=== PATIENT | male | born 1960 | race African-American/Black ===

== ENCOUNTER 2018-04-26 04:57 | Inpatient (IN) ==
[2018-04-26] MEDS ORDERED: Morphine Inj 4 MG/ML Vial IV.PUSH ONE (05:12)
[2018-04-26] MEDS ORDERED: Sod Chloride 0.9% Inj 1,000 ML IV.SIG ONE (05:12)
--- NOTE | 2018-04-26 05:12 | ED ---
HPI General Chief Complaint: Abdominal Pain Stated Complaint: ABD Pain Time Seen by Provider: 04/26/18 05:09 Source: patient Mode of arrival: ambulatory Limitations: no limitations History of Present Illness HPI narrative: 58-year-old male patient presents to the ER today because he is having right upper quadrant abdominal pains with radiation throughout the abdomen starting yesterday. He states the pain is currently a 10 out of 10, nauseous, vomiting, and he states that he thinks is because of food poisoning from chicken he ate in [place]. He denies any fevers, does not know of any sick contacts, denies diarrhea or any other symptoms. Modifying Factors: None Associated Signs & Symptoms: Right upper quadrant abdominal pain, nausea, vomiting Risk Factors: None Related Data Home Medications Medication Instructions Recorded Confirmed No Known Home Medications 04/26/18 04/26/18 Allergies Allergy/AdvReac Type Severity Reaction Status Date / Time aspirin Allergy Rash Verified 04/26/18 05:11 ibuprofen [From Motrin] Allergy Rash Verified 04/26/18 05:11 Review of Systems ROS: all other systems reviewed are negative FOR[facility] Medical History Medical History Diabetes mellitus (Acute) Surgical History Surgical History History of repair of ACL (Acute) Social History Social History Substance History: No History of Abuse Smoking Status: Never smoker How Often Do You Have a Drink Containing Alcohol: Monthly or less Recent Travel in [facility] within the Last 8 Weeks: No Recent Out of Country Travel within the Last 8 Weeks: No Immunization History Tetanus Immunization: <5 Years Exam Narrative Exam Narrative: GENERAL: Well-developed elderly male patient currently in moderate distress. Awake and oriented x3. SKIN: Focused skin assessment warm/dry. HEAD: Atraumatic. Normocephalic. EYES: Pupils equal and round. No scleral icterus. No injection or drainage. ENT: No nasal bleeding or discharge. Mucous membranes pink and moist. NECK: Trachea midline. No JVD. CARDIOVASCULAR: Regular rate and rhythm. No murmur appreciated. RESPIRATORY: No accessory muscle use. Clear to auscultation. Breath sounds equal bilaterally. GASTROINTESTINAL: Abdomen soft, mild right upper quadrant tenderness and upper abdominal tenderness without guarding or rebound, moderately distended. Hepatic and splenic margins not palpable. MUSCULOSKELETAL: No obvious deformities. No clubbing. No cyanosis. No edema. NEUROLOGICAL: Awake and alert. No obvious cranial nerve deficits. Motor grossly within normal limits. Normal speech. PSYCHIATRIC: Appropriate mood and affect; insight and judgment normal. Course Initial Documented Vital Signs Temperature 98.9 F 04/26/18 05:03 Pulse Rate 58 L 04/26/18 05:03 Respiratory Rate 18 04/26/18 05:03 Blood Pressure 174/93 H 04/26/18 05:03 Pulse Oximetry 95 04/26/18 05:03 Last Documented Vital Signs Temperature 98.9 F 04/26/18 05:03 Pulse Rate 72 04/26/18 06:28 Respiratory Rate 18 04/26/18 06:28 Blood Pressure 160/80 H 04/26/18 06:28 Pulse Oximetry 96 04/26/18 06:28 Sign Out Sign Out Data: Patient Sign Out occurred on 04/26/18 at 06:58. Patient's care was discussed, and care was transferred from Tracy Enrique MD to Heath Vang MD. Sign Out Comment: CAT scan showing a possible gallbladder thickening, recommended ultrasound by radiology. Case signed out to Dr. Vang at 7 AM awaiting right upper quadrant ultrasound for further disposition. Last updated by Tracy Enrique MD at 04/26/18 06:56 Post-Handoff Eval: She was signed out to me at change of shift by the nighttime doctor. We are waiting ultrasound of the gallbladder. Patient presents with complaints of right upper quadrant pain starting last night after eating. Patient has CT scan that showed questionable gallbladder thickening in the inferior wall. Ultrasound shows gallstones with thickening of the gallbladder. Case was discussed with Dr. Dickson, general surgery, who has come to see the patient and will take him for surgery to remove the gallbladder. Patient's creatinine was 1.45. He is been given 1 L normal saline bolus x1. Medical Decision Making MDM Narrative Medical Screen Exam Complete: Yes Emergency Medical Condition: Yes Differential Diagnosis Differential Diagnosis: Gastroenteritis versus food poisoning versus versus pancreatitis versus other acute intra-abdominal processes Lab Data Result diagrams: 04/26/18 05:20 04/26/18 05:20 Lab Results 04/26/18 04/26/18 04/26/18 Range/Units 05:18 05:20 05:20 WBC 12.1 H (4.0-11.0) th/mm3 RBC 4.66 (4.50-5.90) mil/mm3 Hgb 15.2 (13.0-17.0) gm/dL Hct 43.7 (39.0-51.0) % MCV 93.7 (80.0-100.0) fL MCH 32.7 (27.0-34.0) pg MCHC 34.9 (32.0-36.0) % RDW 14.2 (11.6-17.2) % Plt Count 206 (150-450) th/mm3 MPV 8.3 (7.0-11.0) fL Neut % (Auto) 89.0 H (16.0-70.0) % Lymph % (Auto) 6.0 L (9.0-44.0) % [place] % (Auto) 4.6 (0.0-8.0) % Eos % (Auto) 0.0 (0.0-4.0) % Baso % (Auto) 0.4 (0.0-2.0) % Neut # (Auto) 10.8 H (1.8-7.7) th/mm3 Lymph # (Auto) 0.7 L (1.0-4.8) th/mm3 [place] # (Auto) 0.6 (0.0-0.9) th/mm3 Eos # (Auto) 0.0 (0.0-0.4) th/mm3 Baso # (Auto) 0.1 (0.0-0.2) th/mm3 WBC Differential . Differential Comment Auto diff final Sodium 139 (136-145) meq/L Potassium 4.4 (3.5-5.1) meq/L Chloride 107 (98-107) meq/L Carbon Dioxide 23.7 (21.0-32.0) meq/L Anion Gap 8 (5-15) meq/L BUN 18 (7-18) mg/dL Creatinine 1.46 H (0.60-1.30) mg/dL Estimated GFR 49 L (>89) mL/min Random Glucose 267 H (74-106) mg/dL Calcium 9.3 (8.5-10.1) mg/dL Magnesium 2.0 (1.5-2.5) mg/dL Total Bilirubin 0.4 (0.2-1.0) mg/dL AST 20 (15-37) U/L ALT 40 (12-78) U/L Alkaline Phosphatase 92 (45-117) U/L Total Protein 7.9 (6.4-8.2) g/dL Albumin 3.9 (3.4-5.0) g/dL Lipase 109 (73-393) U/L Urine Color Yellow (Yellw/Straw) Urine Clarity Clear (Clear) Urine pH 5.0 (5.0-8.5) Ur Specific [place] 1.021 (1.002-1.035) Urine Protein Negative (Neg-Trace) mg/dL Urine Glucose (UA) 500 or greater (Negative) mg/dL Urine Ketones 20 (Negative) mg/dL Urine Occult Blood Negative (Negative) Urine Nitrate Negative (Negative) Urine Bilirubin Negative (Negative) Urine Urobilinogen Less than 2 (Less than 2) mg/dL Ur Leukocyte Esterase Negative (Negative) Urine RBC Less than 1 (0-3) /hpf Urine Mucus Few H (Occasional) /lpf Micro UA Comment Culture not ind Ur Microscopic Review Not Reportable Urine Culture Comments Culture not ind Imaging Data Radiologist's impression: Abdomen/Pelvis CT 04/26/18 05:12 CONCLUSION: 1. Fatty liver. Distended gallbladder. No radiopaque gallstones or definite gallbladder wall thickening is identified however on some of the reformatted images some of the fat around the gallbladder is higher density possible inflammation. On the sagittal reformats (series 602 image 71) there is a lucency in the gallbladder lumen could be gas-filled noncalcified gallstone. There is also some questionable inflammation around the neck of the gallbladder (series 2 image 32 series 602 image 71) Gallbladder ultrasound would be helpful to confirm acute cholecystitis. Gallbladder Ultrasound 04/26/18 06:44 CONCLUSION: 1. Gallstones with minimal pericholecystic fluid. Common duct is not visualized. Discharge Plan Discharge Disposition Patient Disposition: ED Admit(ED Internal Use Only) Discharge Details Diagnosis: Acute cholecystitis, Renal insufficiency Physicians Team ED Provider: Heath Vang Primary Care Provider: UNKNOWN, Rxs /Orders / Referrals /Forms Prescriptions: No Action No Known Home Medications RF: 0 Discharge Instructions Patient Printed Instructions: Laparoscopic Cholecystectomy (DC) Discharge Interventions Interventions: Vital Signs Last Done: 04/26/18 06:28 Status ED Status: With Doctor
[2018-04-26 05:30] LABS: Baso # (Auto) 0.1 th/mm3 (0.0-0.2); Baso % (Auto) 0.4 % (0.0-2.0); Hematocrit 43.7 % (39.0-51.0); Hemoglobin 15.2 gm/dL (13.0-17.0); Lymph # (Auto) 0.7 th/mm3 (1.0-4.8); Mean Corpuscular HGB Conc 34.9 % (32.0-36.0); Mean Corpuscular Hemoglobin 32.7 pg (27.0-34.0); Mean Corpuscular Volume 93.7 fL (80.0-100.0); Mean Platelet Volume 8.3 fL (7.0-11.0); Mono # (Auto) 0.6 th/mm3 (0.0-0.9); Mono % (Auto) 4.6 % (0.0-8.0); Neut # (Auto) 10.8 th/mm3 (1.8-7.7); Platelet Count 206 th/mm3 (150-450); Red Blood Count 4.66 mil/mm3 (4.50-5.90); Red Cell Distribution Width 14.2 % (11.6-17.2); White Blood Count 12.1 th/mm3 (4.0-11.0)
[2018-04-26 05:47] LABS: Bilirubin,Urine Negative (Negative); Clarity,Urine Clear (Clear); Color,Urine Yellow (Yellw/Straw); Glucose,Urine (UA) 500 or Greater mg/dL (Negative); Leukocyte Esterase,Urine Negative (Negative); Mucus,Urine Few /lpf (Occasional); Nitrite,Urine Negative (Negative); Specific Gravity,Urine 1.021 (1.002-1.035)
[2018-04-26 05:57] LABS: Albumin 3.9 g/dL (3.4-5.0); Anion Gap 8 meq/L (5-15); Aspartate Aminotransferase 20 U/L (15-37); Blood Urea Nitrogen 18 mg/dL (7-18); Calcium 9.3 mg/dL (8.5-10.1); Carbon Dioxide 23.7 meq/L (21.0-32.0); Chloride 107 meq/L (98-107); Glomerular Filtration Rate 49 mL/min (>89); Glucose,Random 267 mg/dL (74-106); Lipase 109 U/L (73-393); Potassium 4.4 meq/L (3.5-5.1); Sodium 139 meq/L (136-145)
[2018-04-26 05:58] LABS: Alanine Aminotransferase 40 U/L (12-78)
[2018-04-26 06:00] LABS: Alkaline Phosphatase 92 U/L (45-117); Total Protein 7.9 g/dL (6.4-8.2)
--- NOTE | 2018-04-26 06:36 | CT ---
EXAM DATE: 04/26/2018 6:25 AM EST AGE/SEX: 58 years / Male INDICATIONS: Right upper quadrant pain. Nausea, and vomiting. CLINICAL DATA: This is the patient's initial encounter. Patient reports that signs and symptoms have been present for 1 day and indicates a pain score of 10/10. MEDICAL/SURGICAL HISTORY: Diabetes. None. ORAL CONTRAST: No oral contrast ingested. RADIATION DOSE: 9.96 CTDI (mGy) COMPARISON: No prior exams available for comparison. TECHNIQUE: Multiple contiguous axial images were obtained through the abdomen and pelvis following b olus infusion of 60 ml Omnipaque 350 (iohexol) nonionic water-soluble contrast as a single exam dos e. No oral contrast ingested. Using automated exposure control and adjustment of the mA and/or kV ac cording to patient size, radiation dose was kept as low as reasonably achievable to obtain optimal di agnostic quality images. DICOM format image data is available electronically for review and comparis on. FINDINGS: Lower Lungs: The visualized lower lungs are clear. Liver: The liver has a homogeneously lower density without space-occupying lesion. There is no dilati on of the biliary tree. Gallbladder is well distended. Spleen: Homogeneous density without enlargement. Pancreas: Unremarkable without mass or calcification. Kidneys: Normal in size and shape. No evidence of mass or hydronephrosis. Adrenal Glands: Unremarkable. Aorta: The aorta and proximal iliac vessels are grossly unremarkable without aneurysmal dilation. Bowel/Mesentery: The bowel loops are grossly unremarkable. The cecum and sigmoid colon have a normal configuration. Scattered sigmoid diverticulosis Abdominal Wall: Intact. Retroperitoneum: No evidence of adenopathy in the retrocrural, para-aortic, or deep pelvic regions. Bladder: Contours are smooth. Reproductive Organs: No abnormal masses or calcifications seen. Inguinal: The inguinal region is unremarkable without evidence of adenopathy. Bony Structures: Unremarkable. CONCLUSION: 1. Fatty liver. Distended gallbladder. No radiopaque gallstones or definite gallbladder wall thicken ing is identified however on some of the reformatted images some of the fat around the gallbladder is higher density possible inflammation. On the sagittal reformats (series 602 image 71) there is a kierra ency in the gallbladder lumen could be gas-filled noncalcified gallstone. There is also some question able inflammation around the neck of the gallbladder (series 2 image 32 series 602 image 71) Gallblad angel ultrasound would be helpful to confirm acute cholecystitis. Electronically signed by: Stefan Spence MD Board Certified Radiologist 04/26/2018 6:35 AM EST
--- NOTE | 2018-04-26 09:27 | US ---
EXAM DATE: 04/26/2018 8:40 AM EST AGE/SEX: 58 years / Male INDICATIONS: Right upper quadrant pain. CLINICAL DATA: This is the patient's initial encounter. Patient reports that signs and symptoms have been present for 1 day and indicates a pain score of 10/10. MEDICAL/SURGICAL HISTORY: . Diabetic. . ACL repair. COMPARISON: [facility], CT ABDOMEN & PELVIS W CONTRAST, 04/26/2018. . MEASUREMENTS: Liver:__ 18.8 cm. Common Bile Duct:__ Nonvisualized. FINDINGS: Liver: Increased echogenicity without focal lesion or ductal dilatation. Portal Vein: Hepatopedal flow seen in portal vein. Common Duct: Is not visualized Gallbladder: There are stones within the gallbladder with minimal pericholecystic fluid. Pancreas: Not well visualized. Right Kidney: Normal echogenicity and cortical thickness. No mass or hydronephrosis. CONCLUSION: 1. Gallstones with minimal pericholecystic fluid. Common duct is not visualized. Electronically signed by: David Montilla MD Board Certified Radiologist 04/26/2018 9:26 AM EST
[2018-04-26] MEDS ORDERED: Sod Chloride 0.9% Inj 1,000 ML IV.SIG SCH (10:00)
[2018-04-26] MEDS: Bupivacaine/Epinephrine Inj 0.25% 50 ML Vial ONE ×2 (11:49→16:54)
[2018-04-26] MEDS ORDERED: Metoprolol Tartrate 25 MG Tablet PO ONE (12:30)
[2018-04-26] MEDS ORDERED: Sodium Chlor 0.9% Inj 500 ML IV.CONT ONE (12:30)
[2018-04-26] MEDS ORDERED: Chlorhexidine Gluconate 2% 1 Pack (2 Cloths) TOPICAL ONE (12:30)
[2018-04-26] MEDS ORDERED: Promethazine 25 MG Supp RECTAL PRN (14:24)
[2018-04-26] MEDS ORDERED: Bisacodyl 10 MG Supp RECTAL PRN (14:24)
[2018-04-26] MEDS ORDERED: Post-op Orders (for Pharmacy) OTHER ONE (14:24)
--- NOTE | 2018-04-26 14:27 | P.OP ---
- Preoperative Diagnosis (1) Acute cholecystitis - Postoperative Diagnosis (1) Acute cholecystitis Procedure: lap josue Anesthesia: GETA Surgeon: Onur Dickson MD Estimated blood loss (mL): 5 Pathology: other (gallbladder) Operation and Findings: distended gallbladder with large stones, necrotic
[2018-04-26] MEDS ORDERED: ceFAZolin 1 GM Premix Inj 2 GM/100 ML PIGGYBACK IV.SIG ONE (14:37)
[2018-04-26] MEDS ORDERED: ceFAZolin Inj 1,000 MG in Sodium Chlor 0.9% Inj 100 ML IV.SIG SCH (15:00)
[2018-04-26] MEDS ORDERED: fentaNYL Citrate Inj 100 MCG/2 ML Ampul ONE (17:14)
[2018-04-26] MEDS ORDERED: *morphine SULFATE 4 MG/ML PERIprocedure ONLY ONE ×2 (17:21→17:58)
[2018-04-26] MEDS: Sod Chloride 0.9% Inj 1,000 ML IV.CONT SCH (17:25)
[2018-04-26] MEDS: Piperacil/Tazo 2.25 GM Premix 2.25 GM/50 ML PIGGYBACK IV.SIG SCH (18:13)
--- NOTE | 2018-04-26 18:55 | MP ---
cc: Onur Dickson MD DATE OF OPERATION: 04/26/2018 PREOPERATIVE DIAGNOSES: Acute cholecystitis with cholelithiasis. Umbilical hernia. POSTOPERATIVE DIAGNOSES: Acute cholecystitis with cholelithiasis, gangrenous gallbladder. Umbilical hernia. SURGEON: Onur Dickson MD PROCEDURES PERFORMED: Laparoscopic cholecystectomy. Open umbilical hernia repair, primary. ANESTHESIA: GETA. IV FLUIDS: See anesthesia sheet. ESTIMATED BLOOD LOSS: 30 mL DRAINS: A 10-[place] LOUANN drain. COMPLICATIONS: None. INDICATION: The patient is a 58-year-old male who presents with acute onset of right lower quadrant abdominal pain. The patient had further workup including CT scan and ultrasound showing acutely inflamed, distended gallbladder with gallstones. The patient also had CT scan findings of umbilical hernia. SPECIMENS: Gallbladder. FINDINGS: Acutely distended tense inflamed gallbladder with multiple gallstones. Necrotic gallbladder. DETAILS OF PROCEDURE: The patient was taken to the operating suite, placed in supine position. He was prepped and draped in usual sterile fashion after induction of general endotracheal anesthesia. Brief timeout stating correct patient, procedure, and surgical site. We were all in agreement with this. Attention first directed to the superior umbilicus where local injected. Small stab joselyn incision made. The Visiport Optiview 5 mm was extended into the abdomen safely. Abdomen insufflated to 15 mm of pneumoperitoneum. On cursory inspection, no evidence of injury. Several other ports were placed, including an epigastric 12 mm port followed by 2 right subcostal ports, 5 mm. The patient was placed in reverse Trendelenburg, airplaning to the left. The gallbladder noted to be very tense, dilated, and somewhat necrotic wall. Endoneedle used to obtain 160 mL of bilious material. The gallbladder was desufflated in order to be able to grasp it and advance the gallbladder. There were multiple adhesions of omentum attached to the gallbladder. These were taken down with electro Bovie cautery. Suction, blunt dissection, and electrocautery were used to remove adhesions off the gallbladder that were intermittently adhered to this. Gallbladder was dissected out. Two small clips were placed proximal and 1 distal on the cystic duct structure. This was clipped with EndoShears. The cystic artery was also ligated with clips. The gallbladder was attempted to be removed from the gallbladder fossa. There was a significant amount of fatty tissue on the gallbladder and acute inflammation. The decision was made to proceed with a dome-down approach. Gallbladder was removed from the gallbladder fossa. Gallbladder noted to have several attachments to the gallbladder fossa. Endoloop used to ligate this and transect the gallbladder and place in EndoCatch bag and remove from the abdomen. Multiple stones were also noted within the gallbladder, were also removed. Suction irrigation was done until the effluent was clear. Surgicel powder was used for assistance in hemostatic agent in the gallbladder fossa. A 10 flat LOUANN drain was also placed at the right upper quadrant and secured with 2-0 nylon. No evidence of biliary leaking, and hemostasis was obtained. Pneumoperitoneum was removed, and the ports were removed. Attention was directed to the umbilicus where a curvilinear incision was made with a scalpel. Further dissection with Bovie electrocautery down to the fascia. Hemostat used to further dissect the hernia sac from the umbilicus. The sac was removed, and hemostasis was obtained. The hernia was closed with #1 [id number] Prolene and 4-0 Monocryl, and 0 Vicryl was used to attach the umbilicus to the fascia. Local anesthetic injected. The epigastric 12 mm port was closed with 0 Vicryl [id number]; 4-0 Monocryl was done in all subcuticular incisions. The patient tolerated the procedure well. There were no intraoperative complications. All lap and needle counts were correct at the end of the procedure. The patient was extubated and taken stable to the PACU. MD VERA Claire/carrie , 06:27 PM , 06:38 PM
[2018-04-26] MEDS: Morphine Inj 4 MG/ML Vial IV.PUSH PRN (20:44)
--- NOTE | 2018-04-26 22:13 | MH ---
cc: Onur Dickson MD DATE OF ADMISSION: 04/26/2018 CHIEF COMPLAINT: Abdominal pain, acute cholecystitis. HISTORY OF PRESENT ILLNESS: The patient is a 58-year-old male who presents with acute onset of right upper quadrant abdominal pain. The patient states the pain started yesterday and continued to get worse in severity. He states that his pain was initially a 4/10 and currently a 10/10. He had associated nausea and vomiting. He states the pain was sharp, no radiation, worse with movement, better with lying still. He denied any fevers. He came to the emergency department for further evaluation including a CT scan and ultrasound showing gallstones with a thickened gallbladder wall and pericholecystic fluid and acute cholecystitis. Therefore, a surgical evaluation was done. PAST MEDICAL HISTORY: Diabetes. PAST SURGICAL HISTORY: ACL repair. SOCIAL HISTORY: Denies smoking. Occasional ETOH. Denies IVDA. ALLERGIES: ASPIRIN AND IBUPROFEN. MEDICATIONS: See EMR. FAMILY HISTORY: Denies cancers or hypertension. REVIEW OF SYSTEMS: GENERAL: Denies fevers or chills. HEENT: Denies eye pain or ear pain. NECK: Denies swelling or pain. LUNGS: Denies cough or wheeze. HEART: Denies palpitations or chest pain. ABDOMEN: Complains of nausea, vomiting and abdominal pain. GENITOURINARY: Denies dysuria or hematuria. ENDOCRINE: Denies polyuria or polydipsia. INTEGUMENTARY: Denies any masses or lesions. NEUROLOGIC: Denies any numbness or tingling. PHYSICAL EXAMINATION: GENERAL: The patient is in no acute distress. VITAL SIGNS: Temperature 98.9, pulse 58, respirations 18, blood pressure 174/93, saturation 95%. HEENT: Pupils equal, round and reactive. NECK: Supple. Trachea midline. LUNGS: Clear to auscultation. Bilateral expansion. HEART: S1, S2. Regular. ABDOMEN: Soft, positive tenderness to palpation in the right upper quadrant, minimal localized rebound. EXTREMITIES: Warm and well perfused. NEUROLOGIC: GCS of 15, 5/5 motor in all extremities. INTEGUMENT: No obvious masses or lesions. PSYCHIATRIC: Appropriate mood, appropriate behavior. LABORATORY AND DIAGNOSTIC DATA: WBC 12.1, hemoglobin 15.2, hematocrit 43.7, platelets 206. Sodium 139, potassium 4.4, chloride 107, BUN 18, creatinine 1.4, glucose 267, AST 20, ALT 40, alkaline phosphatase 92, albumin 3.9, lipase 109. CT reviewed by myself showing a small umbilical hernia and a thickened gallbladder wall and multiple gallstones. Gallbladder ultrasound, pericholecystic fluid with a thickened wall and gallstones. ASSESSMENT: The patient is a 58-year-old male who presents with acute onset of abdominal pain in the right upper quadrant consistent with acute cholecystitis. The patient also with a very small umbilical hernia. PLAN: After a full workup, the patient with the above-noted issues. At this point, he has acute cholecystitis with cholelithiasis. I discussed with the patient regarding emergent operative intervention including laparoscopic cholecystectomy and possible hernia repair. I discussed with the patient that the hernia repair would be a primary repair without the use of mesh due to the concern for infection of his gallbladder. He states understanding and agrees. The patient will be n.p.o., IV fluids, pain control. We will plan for operative intervention including laparoscopic cholecystectomy and possible umbilical hernia repair. MD VERA Claire/joanne , 09:20 PM , 09:29 PM
[2018-04-26] MEDS: Senna/Docusate Sodium 8.6/50 MG Tablet PO SCH (22:35)
[2018-04-26] MEDS: ceFAZolin 1 GM Premix Inj 1 GM/50 ML PIGGYBACK IV.SIG SCH (22:35)
[2018-04-27] MEDS: Piperacil/Tazo 2.25 GM Premix 2.25 GM/50 ML PIGGYBACK IV.SIG SCH ×3 (01:06→17:04)
[2018-04-27 04:59] LABS: Baso % (Auto) 0.3 % (0.0-2.0); Eos % (Auto) 0.4 % (0.0-4.0); Hematocrit 38.1 % (39.0-51.0); Hemoglobin 13.2 gm/dL (13.0-17.0); Lymph # (Auto) 0.9 th/mm3 (1.0-4.8); Lymph % (Auto) 11.3 % (9.0-44.0); Mean Corpuscular HGB Conc 34.8 % (32.0-36.0); Mean Corpuscular Volume 94.8 fL (80.0-100.0); Mean Platelet Volume 8.1 fL (7.0-11.0); Mono # (Auto) 0.9 th/mm3 (0.0-0.9); Mono % (Auto) 11.1 % (0.0-8.0); Neut # (Auto) 6.4 th/mm3 (1.8-7.7); Neut % (Auto) 76.9 % (16.0-70.0); Platelet Count 174 th/mm3 (150-450); Red Blood Count 4.02 mil/mm3 (4.50-5.90); Red Cell Distribution Width 14.5 % (11.6-17.2); White Blood Count 8.3 th/mm3 (4.0-11.0)
[2018-04-27] MEDS: Sod Chloride 0.9% Inj 1,000 ML IV.CONT SCH ×3 (05:06→14:22)
[2018-04-27] MEDS: ceFAZolin 1 GM Premix Inj 1 GM/50 ML PIGGYBACK IV.SIG SCH ×2 (05:06→14:16)
[2018-04-27] MEDS: Morphine Inj 4 MG/ML Vial IV.PUSH PRN ×2 (05:19→17:09)
[2018-04-27 05:29] LABS: Alanine Aminotransferase 86 U/L (12-78); Alkaline Phosphatase 72 U/L (45-117); Anion Gap 7 meq/L (5-15); Aspartate Aminotransferase 65 U/L (15-37); Blood Urea Nitrogen 12 mg/dL (7-18); Calcium 7.8 mg/dL (8.5-10.1); Carbon Dioxide 27.1 meq/L (21.0-32.0); Chloride 105 meq/L (98-107); Glomerular Filtration Rate 65 mL/min (>89); Glucose,Random 201 mg/dL (74-106); Lipase 102 U/L (73-393); Sodium 139 meq/L (136-145); Total Protein 6.6 g/dL (6.4-8.2)
--- NOTE | 2018-04-27 06:25 | P.PNGS ---
Subjective Patient reports: no new complaints, pain is less, no flatus Physical Exam Vital signs: Vital Signs 04/26/18 06:28 04/26/18 11:15 04/26/18 16:58 Temperature 98 F 98.2 F Pulse Rate 72 62 77 Respiratory Rate 18 16 23 Blood Pressure 160/80 H 166/83 H 199/102 H Pulse Oximetry 96 94 L 95 04/26/18 17:00 04/26/18 17:15 04/26/18 17:24 Temperature Pulse Rate 80 73 Respiratory Rate 21 17 Blood Pressure 163/91 H 163/92 H Pulse Oximetry 95 96 94 L 04/26/18 17:30 04/26/18 17:45 04/26/18 18:00 Temperature 98.5 F Pulse Rate 73 73 68 Respiratory Rate 17 15 20 Blood Pressure 171/95 H 165/95 H 167/95 H Pulse Oximetry 94 L 94 L 94 L 04/26/18 18:22 04/26/18 18:30 04/26/18 18:45 Temperature Pulse Rate 77 79 80 Respiratory Rate 20 12 12 Blood Pressure 168/68 H 150/84 H 146/89 H Pulse Oximetry 93 L 93 L 93 L 04/26/18 19:30 04/26/18 19:50 04/26/18 20:00 Temperature 98 F Pulse Rate 73 75 Respiratory Rate 12 18 Blood Pressure 150/85 H 155/79 H Pulse Oximetry 95 96 93 L 04/27/18 00:00 04/27/18 04:00 Temperature 97.2 F L 98.7 F Pulse Rate 78 77 Respiratory Rate 18 18 Blood Pressure 133/63 143/76 H Pulse Oximetry 94 L 95 Intake & Output 04/26/18 04/26/18 04/27/18 06:59 18:59 06:59 Intake Total 1000 / 1000 1600 / 1600 1250 / 1250 Output Total 40 / 40 40 / 40 Balance 1000 / 1000 1560 / 1560 1210 / 1210 Weight 106.594 kg Intake: IV 1000 / 1000 200 / 200 1250 / 1250 NS Inj 1,000 ML @ 100 mls/hr IV 1000 / 1000 .CONT .Q10H CHAVEZ Rx#:[id number] Zosyn 2.25 GM Premix 2.25 gm In 100 / 100 50 ml @ 100 mls/hr IV.SIG Q8H CHAVEZ Rx#:[id number] NS Inj 1,000 ML @ Wide Open IV. 1000 / 1000 SIG BOLUS ONE Rx#:[id number] Ancef 1 GM Premix Inj 1 gm In 100 / 100 50 / 50 50 ml @ 100 mls/hr IV.SIG Q8H CHAVEZ Rx#:[id number] Flagyl 500 MG Inj 100 ML @ 100 100 / 100 100 / 100 mls/hr IV.SIG Q8H CHAVEZ Rx#: [id number] Anesthesia Amount 1400 / 1400 Output: Estimated Blood Loss 40 / 40 Wound Drainage 40 / 40 # 1 Right Lateral Abdomen CHRIS 40 / 40 Drain - Routine Abdominal Exam Present: soft (chris serosang, incisional tenderness) Results - Labs 04/27/18 04:31 04/27/18 04:31 Laboratory Results - last 24 hr 04/27/18 04/27/18 04:31 04:31 WBC 8.3 RBC 4.02 L Hgb 13.2 D Hct 38.1 L MCV 94.8 MCH 33.0 MCHC 34.8 RDW 14.5 Plt Count 174 MPV 8.1 Neut % (Auto) 76.9 H Lymph % (Auto) 11.3 [place] % (Auto) 11.1 H Eos % (Auto) 0.4 Baso % (Auto) 0.3 Neut # (Auto) 6.4 Lymph # (Auto) 0.9 L [place] # (Auto) 0.9 Eos # (Auto) 0.0 Baso # (Auto) 0.0 WBC Differential . Differential Comment Auto diff final Sodium 139 Potassium 4.0 Chloride 105 Carbon Dioxide 27.1 Anion Gap 7 BUN 12 Creatinine 1.36 H Estimated GFR 65 L Random Glucose 201 H Calcium 7.8 L D Total Bilirubin 0.7 AST 65 H ALT 86 H Alkaline Phosphatase 72 Total Protein 6.6 D Albumin 3.0 L D Lipase 102 - Imaging Imaging: ITS Impressions Abdomen/Pelvis CT 04/26/18 05:12 CONCLUSION: 1. Fatty liver. Distended gallbladder. No radiopaque gallstones or definite gallbladder wall thickening is identified however on some of the reformatted images some of the fat around the gallbladder is higher density possible inflammation. On the sagittal reformats (series 602 image 71) there is a lucency in the gallbladder lumen could be gas-filled noncalcified gallstone. There is also some questionable inflammation around the neck of the gallbladder (series 2 image 32 series 602 image 71) Gallbladder ultrasound would be helpful to confirm acute cholecystitis. Gallbladder Ultrasound 04/26/18 06:44 CONCLUSION: 1. Gallstones with minimal pericholecystic fluid. Common duct is not visualized. Assessment and Plan - Plan POD 1 Lap josue umbilical hernia repair PLAN Full liq diet oob pain control IS anticipate dc tomorrow chris sxn
[2018-04-27] MEDS ORDERED: Benzocaine/Menthol 15 MG/3.6 MG SF Lozenge BUCCAL PRN (06:28)
[2018-04-27] MEDS: Senna/Docusate Sodium 8.6/50 MG Tablet PO SCH ×2 (08:36→21:00)
--- NOTE | 2018-04-28 00:46 | ECG ---
Date Performed: 04/26/2018 Time Performed: 11:35:23 PTAGE: 58 years EKG: SINUS BRADYCARDIA NONSPECIFIC T-WAVE ABNORMALITY BORDERLINE ECG NO PREVIOUS TRACING DOCTOR: Jere Hercules Interpretating Date/Time 04/28/2018 00:45:37
[2018-04-28] MEDS: Morphine Inj 4 MG/ML Vial IV.PUSH PRN ×4 (00:58→23:38)
[2018-04-28] MEDS: Piperacil/Tazo 2.25 GM Premix 2.25 GM/50 ML PIGGYBACK IV.SIG SCH ×4 (01:07→19:30)
[2018-04-28 07:25] LABS: Baso % (Auto) 0.4 % (0.0-2.0); Eos # (Auto) 0.1 th/mm3 (0.0-0.4); Eos % (Auto) 1.8 % (0.0-4.0); Hematocrit 35.6 % (39.0-51.0); Hemoglobin 12.3 gm/dL (13.0-17.0); Lymph # (Auto) 0.8 th/mm3 (1.0-4.8); Lymph % (Auto) 13.3 % (9.0-44.0); Mean Corpuscular HGB Conc 34.4 % (32.0-36.0); Mean Corpuscular Hemoglobin 32.8 pg (27.0-34.0); Mean Corpuscular Volume 95.3 fL (80.0-100.0); Mean Platelet Volume 8.1 fL (7.0-11.0); Mono # (Auto) 0.6 th/mm3 (0.0-0.9); Mono % (Auto) 10.6 % (0.0-8.0); Neut # (Auto) 4.4 th/mm3 (1.8-7.7); Neut % (Auto) 73.9 % (16.0-70.0); Platelet Count 157 th/mm3 (150-450); Red Blood Count 3.74 mil/mm3 (4.50-5.90); Red Cell Distribution Width 14.4 % (11.6-17.2)
[2018-04-28 07:51] LABS: Alanine Aminotransferase 52 U/L (12-78); Albumin 2.6 g/dL (3.4-5.0); Anion Gap 6 meq/L (5-15); Aspartate Aminotransferase 28 U/L (15-37); Blood Urea Nitrogen 10 mg/dL (7-18); Calcium 7.7 mg/dL (8.5-10.1); Carbon Dioxide 28.4 meq/L (21.0-32.0); Chloride 107 meq/L (98-107); Glomerular Filtration Rate 73 mL/min (>89); Glucose,Random 135 mg/dL (74-106); Potassium 3.8 meq/L (3.5-5.1); Sodium 141 meq/L (136-145)
[2018-04-28 07:53] LABS: Alkaline Phosphatase 69 U/L (45-117); Total Protein 6.2 g/dL (6.4-8.2)
[2018-04-28] MEDS: Senna/Docusate Sodium 8.6/50 MG Tablet PO SCH ×2 (08:44→23:38)
[2018-04-28] MEDS: Sod Chloride 0.9% Inj 1,000 ML IV.CONT SCH (08:44)
--- NOTE | 2018-04-28 09:50 | P.PNGS ---
Subjective Patient reports: no new complaints, feels better, no bowel movement Physical Exam Vital signs: Vital Signs 04/27/18 12:00 04/27/18 16:00 04/27/18 20:00 Temperature 97.9 F 97.9 F 98.4 F Pulse Rate 79 79 67 Respiratory Rate 17 17 18 Blood Pressure 128/64 128/64 141/71 H Pulse Oximetry 89 L 89 L 93 L 04/28/18 00:00 Temperature 98.2 F Pulse Rate 64 Respiratory Rate 18 Blood Pressure 127/71 Pulse Oximetry 94 L Intake & Output 04/27/18 04/28/18 04/28/18 18:59 06:59 18:59 Intake Total 1100 / 1100 1000 / 1000 120 / 120 Output Total 80 / 80 40 / 40 Balance 1020 / 1020 960 / 960 120 / 120 Weight 114 kg 114.9 kg Intake: IV 1100 / 1100 1000 / 1000 NS Inj 1,000 ML @ 100 mls/hr IV 1000 / 1000 1000 / 1000 .CONT .Q10H [facility] Rx#:[id number] Zosyn 2.25 GM Premix 2.25 gm In 100 / 100 50 ml @ 100 mls/hr IV.SIG Q8H [facility] Rx#:[id number] Oral 120 / 120 Output: Estimated Blood Loss 40 / 40 Wound Drainage 40 / 40 40 / 40 # 1 Right Lateral Abdomen CHRIS 40 / 40 40 / 40 Drain Other: # Voids 1 Weight On Admission 114 kg - Routine Abdominal Exam Present: soft (incisional tenderness, chris serosang) Results - Labs 04/28/18 06:08 04/28/18 06:08 Laboratory Results - last 24 hr 04/28/18 04/28/18 06:08 06:08 WBC 6.0 RBC 3.74 L Hgb 12.3 L Hct 35.6 L MCV 95.3 MCH 32.8 MCHC 34.4 RDW 14.4 Plt Count 157 MPV 8.1 Neut % (Auto) 73.9 H Lymph % (Auto) 13.3 [place] % (Auto) 10.6 H Eos % (Auto) 1.8 Baso % (Auto) 0.4 Neut # (Auto) 4.4 Lymph # (Auto) 0.8 L [place] # (Auto) 0.6 Eos # (Auto) 0.1 Baso # (Auto) 0.0 WBC Differential . Differential Comment Auto diff final Sodium 141 Potassium 3.8 Chloride 107 Carbon Dioxide 28.4 Anion Gap 6 BUN 10 Creatinine 1.23 Estimated GFR 73 L Random Glucose 135 H Calcium 7.7 L Total Bilirubin 0.5 AST 28 ALT 52 Alkaline Phosphatase 69 Total Protein 6.2 L Albumin 2.6 L - Imaging Imaging: ITS Impressions Abdomen/Pelvis CT 04/26/18 05:12 CONCLUSION: 1. Fatty liver. Distended gallbladder. No radiopaque gallstones or definite gallbladder wall thickening is identified however on some of the reformatted images some of the fat around the gallbladder is higher density possible inflammation. On the sagittal reformats (series 602 image 71) there is a lucency in the gallbladder lumen could be gas-filled noncalcified gallstone. There is also some questionable inflammation around the neck of the gallbladder (series 2 image 32 series 602 image 71) Gallbladder ultrasound would be helpful to confirm acute cholecystitis. Gallbladder Ultrasound 04/26/18 06:44 CONCLUSION: 1. Gallstones with minimal pericholecystic fluid. Common duct is not visualized. Assessment and Plan - Plan POD 2 Lap josue umbilical hernia repair PLAN reg diet oob pain control IS anticipate dc sunday chris sxn, will remove prior to d/c lovenox bowel regimen d/c IVF
[2018-04-28] MEDS: Enoxaparin Inj 30 MG/0.3 ML Syringe SQ SCH (12:39)
[2018-04-28 20:51] VITALS: RESP 18
[2018-04-29] MEDS: Piperacil/Tazo 2.25 GM Premix 2.25 GM/50 ML PIGGYBACK IV.SIG SCH ×2 (02:20→08:34)
[2018-04-29] MEDS: Morphine Inj 4 MG/ML Vial IV.PUSH PRN (04:16)
--- NOTE | 2018-04-29 06:35 | P.PNGS ---
Subjective Patient reports: no new complaints, feels better, flatus, no bowel movement Physical Exam Vital signs: Vital Signs 04/28/18 08:00 04/28/18 12:00 04/28/18 16:00 Temperature 99.0 F 98.1 F 98.8 F Pulse Rate 71 58 L 77 Respiratory Rate 15 16 15 Blood Pressure 137/85 153/81 H 142/66 H Pulse Oximetry 92 L 97 96 04/28/18 20:00 04/29/18 00:00 Temperature 98.3 F 97.8 F Pulse Rate 62 63 Respiratory Rate 18 18 Blood Pressure 150/82 H 142/71 H Pulse Oximetry 97 97 Intake & Output 04/28/18 04/28/18 04/29/18 06:59 18:59 06:59 Intake Total 1000 / 1000 220 / 220 150 / 150 Output Total 40 / 40 Balance 960 / 960 220 / 220 150 / 150 Weight 114.9 kg 112.6 kg Intake: IV 1000 / 1000 100 / 100 150 / 150 NS Inj 1,000 ML @ 100 mls/hr IV 1000 / 1000 .CONT .Q10H [facility] Rx#:[id number] Zosyn 2.25 GM Premix 2.25 gm In 100 / 100 150 / 150 50 ml @ 100 mls/hr IV.SIG Q8H [facility] Rx#:[id number] Oral 120 / 120 Output: Wound Drainage 40 / 40 # 1 Right Lateral Abdomen LOUANN 40 / 40 Drain Other: # Voids 1 1 - Routine Abdominal Exam Present: soft (incisional tenderness, c/d/i) Results - Labs 04/28/18 06:08 04/28/18 06:08 Laboratory Results - last 24 hr 04/28/18 04/28/18 06:08 06:08 WBC 6.0 RBC 3.74 L Hgb 12.3 L Hct 35.6 L MCV 95.3 MCH 32.8 MCHC 34.4 RDW 14.4 Plt Count 157 MPV 8.1 Neut % (Auto) 73.9 H Lymph % (Auto) 13.3 [place] % (Auto) 10.6 H Eos % (Auto) 1.8 Baso % (Auto) 0.4 Neut # (Auto) 4.4 Lymph # (Auto) 0.8 L [place] # (Auto) 0.6 Eos # (Auto) 0.1 Baso # (Auto) 0.0 WBC Differential . Differential Comment Auto diff final Sodium 141 Potassium 3.8 Chloride 107 Carbon Dioxide 28.4 Anion Gap 6 BUN 10 Creatinine 1.23 Estimated GFR 73 L Random Glucose 135 H Calcium 7.7 L Total Bilirubin 0.5 AST 28 ALT 52 Alkaline Phosphatase 69 Total Protein 6.2 L Albumin 2.6 L - Imaging Imaging: ITS Impressions Abdomen/Pelvis CT 04/26/18 05:12 CONCLUSION: 1. Fatty liver. Distended gallbladder. No radiopaque gallstones or definite gallbladder wall thickening is identified however on some of the reformatted images some of the fat around the gallbladder is higher density possible inflammation. On the sagittal reformats (series 602 image 71) there is a lucency in the gallbladder lumen could be gas-filled noncalcified gallstone. There is also some questionable inflammation around the neck of the gallbladder (series 2 image 32 series 602 image 71) Gallbladder ultrasound would be helpful to confirm acute cholecystitis. Gallbladder Ultrasound 04/26/18 06:44 CONCLUSION: 1. Gallstones with minimal pericholecystic fluid. Common duct is not visualized. Assessment and Plan - Plan POD 3 Lap josue umbilical hernia repair PLAN reg diet oob pain control IS D/C Today, script on chart lovenox bowel regimen
[2018-04-29] MEDS: Senna/Docusate Sodium 8.6/50 MG Tablet PO SCH (08:33)
[2018-04-29] MEDS: Enoxaparin Inj 30 MG/0.3 ML Syringe SQ SCH (08:33)
[2018-04-29 08:55] VITALS: BP 145/81; PULSE 60; TEMP 98.4; O2SAT 95
== END 2018-04-29 11:52 | disposition home or self-care (01) ==
LOC: NEPC 04:57 → HSDC 10:39 → NEDA 10:41 → N07 12:31 → HSDI 14:29 → N07 20:00
PROVIDERS: ADMIT Surgery; ATTEND Surgery